=== PATIENT | male | born 1970 | race Caucasian/White ===

== ENCOUNTER 2022-10-06 11:18 | Emergency (ER) | payer OTHER ==
[2022-10-06] MEDS ORDERED: Morphine 4 MG/ML VIAL ONE ×3 (11:46→21:16)
[2022-10-06 11:49] LABS: #Basophils 0.1 10x3/uL (0.0-0.2); #Eosinphils 0.6 10x3/uL (0.0-0.5); #Monocytes 1.2 10x3/uL (0.0-1.1); #Neutrophils 7.4 10x3/uL (1.5-8.4); %Eosinophils 5.1 % (0.0-6.0); %Lymphocytes 15.2 % (18.0-47.0); %Monocytes 10.7 % (0.0-10.0); %Neutrophils 67.4 % (40.0-75.0); Hemoglobin 12.9 g/dL (13.5-17.5); Mean Corpuscular HGB CONC 30.4 g/dL (32.0-36.0); Mean Corpuscular Hemoglobin 23.6 pg (27.0-33.0); Mean Corpuscular Volume 77.7 fl (81.2-95.1); Platelet Count 253 10x3/uL (150-450); RBC Distribution Width 16.6 % (11.5-14.5); Red Blood Cell (RBC) Count 5.46 10x6/uL (4.32-5.72); White Blood Cell (WBC) Count 10.9 10x3/uL (3.5-10.5)
[2022-10-06 12:08] LABS: ALT (SGPT) 9 U/L (8-55); AST (SGOT) 12 U/L (5-34); Albumin 3.6 g/dL (3.5-5.0); Alkaline Phosphatase 66 U/L (40-110); Anion Gap 11 mmol/L (10-20); BUN (Urea Nitrogen) 24 mg/dL (8.4-25.7); CRP (Inflammatory) 2.09 mg/dL (= or < 0.5); Calc. Creatinine Clearance 0 mL/min (70-130); Calcium 8.7 mg/dL (7.8-10.44); Carbon Dioxide 29 mmol/L (22-29); Chloride 103 mmol/L (98-107); Estimated GFR 64; Globulin 4.1 g/dL (2.4-3.5); Glucose 65 mg/dL (70-105); Potassium 3.8 mmol/L (3.5-5.1); Protein, Total 7.7 g/dL (6.0-8.3); Sodium 139 mmol/L (136-145)
[2022-10-06 12:26] LABS: SARS-CoV-2 NAA Rapid Test DETECTED (NotDetected)
[2022-10-06 12:34] LABS: Bilirubin Neg (Negative); Blood, Urine 25 (Negative); Glucose, Urine (Dipstick) Normal (Negative); Ketone, Urine Negative (Negative); Leukocyte 25 (Negative); Nitrite Negative (Negative); Protein, Urine (Dipstick) 30 mg/dl (Neg-Trace)
[2022-10-06 12:38] LABS: Clarity Clear (Clear)
[2022-10-06 12:39] LABS: Bacteria/HPF None Seen HPF (None Seen); RBC/HPF 0-3 HPF (0-3); Squamous Epithelial 0-3 HPF (0-3); WBC/HPF 0-3 HPF (0-3)
[2022-10-06] MEDS ORDERED: Cefepime 2 GM VIAL ONE (13:19)
[2022-10-06] MEDS ORDERED: Furosemide 40 MG/4 ML VIAL ONE (13:55)
[2022-10-06] MEDS ORDERED: Vancomycin 1 GM VIAL ONE (13:55)
== END 2022-10-06 22:11 | disposition short-term general hospital (02) ==
LOC: CSHERS 11:18
DX: U07.1 COVID-19 (principal); L03.116 Cellulitis of left lower limb; N48.1 Balanitis; E11.621 Type 2 diabetes mellitus with foot ulcer; L97.519 Non-pressure chronic ulcer of other part of right foot with unspecified severity; E78.5 Hyperlipidemia, unspecified; I11.0 Hypertensive heart disease with heart failure; I50.9 Heart failure, unspecified; I48.91 Unspecified atrial fibrillation; Z87.891 Personal history of nicotine dependence; Z79.899 Other long term (current) drug therapy; Z79.84 Long term (current) use of oral hypoglycemic drugs
CPT/HCPCS: 36415; 76870; 80053; 81003; 81015; 83605; 85025; 86140; 87086; 93005; 93976; 96365; 96375; 96376; J0692; J1940; J2270; J3370; U0002

== ENCOUNTER 2023-06-02 12:36 | Emergency (ER) | payer OTHER ==
[2023-06-02] MEDS ORDERED: VANCOMYCIN 2 GRAM/400 ML BAG 2 GM in Premix Bag 1 BAG IVPB SCH (14:00)
[2023-06-02 14:06] LABS: #Basophils 0.1 10x3/uL (0.0-0.2); #Eosinphils 0.1 10x3/uL (0.0-0.5); #Neutrophils 4.5 10x3/uL (1.5-8.4); %Eosinophils 1.6 % (0.0-6.0); %Lymphocytes 19.3 % (18.0-47.0); %Monocytes 13.9 % (0.0-10.0); %Neutrophils 63.6 % (40.0-75.0); Hematocrit 38.6 % (38.8-50.0); Hemoglobin 11.7 g/dL (13.5-17.5); Mean Corpuscular HGB CONC 30.3 g/dL (32.0-36.0); Mean Corpuscular Hemoglobin 26.5 pg (27.0-33.0); Mean Corpuscular Volume 87.5 fl (81.2-95.1); Mean Platelet Volume 12.6 fl (7.4-10.4); Platelet Count 214 10x3/uL (150-450); RBC Distribution Width 18.8 % (11.5-14.5); Red Blood Cell (RBC) Count 4.41 10x6/uL (4.32-5.72)
[2023-06-02 14:12] LABS: ALT (SGPT) 159 U/L (8-55); AST (SGOT) 76 U/L (5-34); Albumin 3.3 g/dL (3.5-5.0); Alkaline Phosphatase 62 U/L (40-110); Anion Gap 14 mmol/L (10-20); BUN (Urea Nitrogen) 49 mg/dL (8.4-25.7); Bilirubin, Total 0.7 mg/dL (0.2-1.2); Calc. Creatinine Clearance 0 mL/min (70-130); Calcium 8.1 mg/dL (7.8-10.44); Carbon Dioxide 21 mmol/L (22-29); Chloride 105 mmol/L (98-107); Estimated GFR 44; Globulin 3.5 g/dL (2.4-3.5); Glucose 100 mg/dL (70-105); Potassium 4.3 mmol/L (3.5-5.1); Protein, Total 6.8 g/dL (6.0-8.3); Sodium 136 mmol/L (136-145)
[2023-06-02 14:48] LABS: Base Excess -2.8 mEq/L (-2 - +2); Calcium, Ionized (venous) 1.05 mmol/L (1.16-1.32); Chloride (VBG) 105 mmol/L (98-106); Hematocrit-VBG 37 % (42.0-52.0); Hemoglobin (Hb) 12.6 g/dL (13.1-17.2); Potassium (VBG) 4.19 mmol/L (3.70-5.30); Puncture Site Other Site; RapidComm Collect By CBN; Sodium 137 mmol/L (133-146); pH (venous) 7.377 (7.32-7.43)
[2023-06-02 15:27] LABS: Bilirubin Neg (Negative); Blood, Urine 10 (Negative); Clarity Clear (Clear); Glucose, Urine (Dipstick) >=1000 mg/dL (Negative); Ketone, Urine Negative (Negative); Leukocyte 500 (Negative); Nitrite Negative (Negative); Protein, Urine (Dipstick) Negative (Neg-Trace); Urobilinogen Normal mg/dL (Less than 2)
[2023-06-02 15:35] LABS: CAUTI Indications for Culture Fever or rigors; RBC/HPF 0-3 HPF (0-3)
[2023-06-02 15:36] LABS: Bacteria/HPF Rare-Few HPF (None Seen); Yeast-Budding Rare HPF (None Seen)
[2023-06-02 15:38] LABS: Urine Culture Reflex No No
[2023-06-02 16:56] LABS: SARS-CoV-2 NAA Rapid Test Not Detected (NotDetected)
[2023-06-02 17:01] LABS: Lactic Acid 2.5 mmol/L (0.5-2.2)
== END 2023-06-02 20:30 | disposition short-term general hospital (02) ==
LOC: CSHERS 12:36
DX: L03.115 Cellulitis of right lower limb (principal); L03.116 Cellulitis of left lower limb; R65.21 Severe sepsis with septic shock; E11.22 Type 2 diabetes mellitus with diabetic chronic kidney disease; N18.9 Chronic kidney disease, unspecified; I48.91 Unspecified atrial fibrillation; I50.9 Heart failure, unspecified; Z20.822 Contact with and (suspected) exposure to COVID-19; Z79.84 Long term (current) use of oral hypoglycemic drugs; Z79.82 Long term (current) use of aspirin
CPT/HCPCS: 36415; 71045; 80053; 81001; 82805; 83605; 85025; 87040; 93005; 96365; 96366; 96367; J3370; U0002